=== PATIENT | male | born 1965 | race Caucasian/White ===

== ENCOUNTER 2019-03-07 18:56 | Inpatient (IN) | payer BC ==
--- NOTE | 2019-03-07 19:10 | PDOC ---
Rapid Medical Evaluation Time Seen by Provider: 03/07/19 19:07 Medical Evaluation: 03/07/19 19:07 Pt c/o: colonoscopy done 2 days ago, now with blood in stool x 2, no abd pain no distention, denies fever or hemorrhoid, had polyp clipped pt on brief exam: vss, no abd pain or distention Pt ordered for: cbc, sttol for occult blood Pt to proceed to the ED Discharge Disposition - Diagnosis Rectal bleeding, Post-polypectomy bleeding - Discharge Dispostion Disposition: HOME Condition at time of disposition: Improved - Referrals - Patient Instructions - Post Discharge Activity
--- NOTE | 2019-03-07 20:14 | PDOC ---
History of Present Illness - General Chief Complaint: Rectal Bleed Stated Complaint: BLOOD IN STOOL Time Seen by Provider: 03/07/19 19:07 History Source: Patient Exam Limitations: No Limitations - History of Present Illness Initial Comments: 03/07/19 19:45 Shiv Walter is a 53M with PMH CA s/p 2 stents presenting with BRBPR after a routine colonoscopy and polypectomy 6 days ago. Patient went in for a routine colonoscopy 6 days ago and had a polylp removed. Now having 2-3 days of BRBPR with bowel movements, more and more blood noted in well-formed stools, today has blood in water of toilet bowl. Called his GI doctor at [facility] (#[phone]) and was told to go to ER. Patient denies darker stools, abdominal pain, nausea, vomiting, chest pain, shortness of breath, weakness, urinary sx. Last had an EGD and colonoscopy 2 years ago, noted to have polyps at that time and noncancerous. Has not had any bloody stools prior to 2-3 days ago. Possibly history of hemorrhoids, says he occasional has red spotting but not to this extent. Procedures done because father of gastric cancer. Tolerating PO well, last oral intake earlier tonight, had spaghetti without issues. Had one mojito over the weekend without incident. Not straining with BM. NKDA No medications taken daily other than 81mg ASA, not on AC after CA No other PSH Denies tobacco/drug use, occasional alcohol use Past History - Past Medical History Allergies/Adverse Reactions: Allergies Allergy/AdvReac Type Severity Reaction Status Date / Time No Known Allergies Allergy Verified 03/07/19 19:07 COPD: No CHF: No - Immunization History Immunization Up to Date: Yes - Psycho Social/Smoking Cessation Hx Smoking History: Never smoked Have you smoked in the past 12 months: No Information on smoking cessation initiated: No Hx Alcohol Use: No Drug/Substance Use Hx: No Review of Systems - Review of Systems Able to Perform ROS?: Yes Constitutional: No: Symptoms Reported HEENTM: No: Symptoms Reported Respiratory: No: Symptoms reported Cardiac (ROS): No: Symptoms Reported ABD/GI: Yes: Blood Streaked Bowels. No: Constipated, Diarrhea, Nausea, Poor Appetite, Poor Fluid Intake, Vomiting : No: Symptoms Reported Musculoskeletal: No: Symptoms Reported Integumentary: No: Symptoms Reported Neurological: No: Symptoms reported Endocrine: No: Symptoms Reported Hematologic/Lymphatic: No: Symptoms Reported All Other Systems: Reviewed and Negative *Physical Exam - Vital Signs Last Vital Signs Temp Pulse Resp BP Pulse Ox 98.4 F 67 16 108/98 97 03/07/19 19:07 03/07/19 19:07 03/07/19 19:07 03/07/19 19:07 03/07/19 19:07 - Physical Exam General Appearance: Yes: Nourished, Appropriately Dressed. No: Apparent Distress HEENT: positive: EOMI, JENNYFER, Normal Voice, Symmetrical, Pharynx Normal, Hearing Grossly Normal. negative: Scleral Icterus (R), Scleral Icterus (L), Pharyngeal Erythema, Tonsillar Exudate, Tonsillar Erythema Neck: positive: Trachea midline, Supple. negative: Rigid, Lymphadenopathy (R), Lymphadenopathy (L) Respiratory/Chest: positive: Lungs Clear, Normal Breath Sounds. negative: Respiratory Distress, Accessory Muscle Use, Labored Respiration, Crackles, Rales , Rhonchi Cardiovascular: positive: Regular Rhythm, Regular Rate. negative: Edema, Murmur Gastrointestinal/Abdominal: positive: Normal Bowel Sounds, Flat, Soft. negative : Tender, Guarding, Rebound, Hernia, Mass Rectal Exam: positive: NL Prostate, normal rectal tone, heme positive stool, other (external exam shows now hemorrhoids or fissue, has some red blood at anal opening, tone good, no internal masses or tenderness, blood noted on glove with scant brown stool). negative: melena, decreased tone, hemorrhoids Musculoskeletal: positive: Normal Inspection. negative: CVA Tenderness Extremity: positive: Normal Capillary Refill, Normal Inspection, Normal Range of Motion. negative: Tender Integumentary: positive: Normal Color, Dry Neurologic: positive: Fully Oriented, Alert, Normal Mood/Affect, Normal Response ED Treatment Course - LABORATORY CBC & Chemistry Diagram: 03/07/19 20:00 03/07/19 20:00 Medical Decision Making - Medical Decision Making 03/07/19 19:45 Shiv Walter is a 53M with PMH CA s/p 2 stents presenting with BRBPR after a routine colonoscopy and polypectomy 6 days ago. Presentation concerning for rebleed after colocscopy and polypectomy. Patient does not know the name of the GI physician who performed the procedure and was referred here. Patient is HDS and has no other evidence of anemia, no SOB, no dizziness, no abdominal pain, not on AC. Blood still noted at anal opening on rectal exam concerning for continued bleed, will attempt to contact GI doctor. Ordered: CMP CBC type/screen coags hemoccult 03/07/19 20:27 Attempted to call [employer] [facility] four times, was connected to gritting machine operator who could not find patient in records based on and name, transferred to another facility which did not respond. Attempted to call physician who did colonoscopy three times at #[phone] which is phone number given by patient, no response, no message left as there is no indication that this is a medical facility. 03/07/19 20:[address] Wang with GI given inability to contact outside GI. Notes that patient is relatively stable at this time, but could open up at any time and would need emergent colonoscopy in that case. Recommends continuing to try to contact patient's GI, as well as continuing to monitor for worsening bleed, getting orthostatics, and if needs to be admitted will let GI service know in the morning for repeat colonoscopy. 03/07/19 21:01 Tried to call GI doctor again, went to voicemail but again no identification of who owns voicemail inbox. 03/07/19 21:34 Labs show no anemia, no elevated BUN concerning for UGIB, other labs WNL. Decision to admit patient given that the patient is having active bleeding per rectum and we are unable to contact his GI for a transfer and follow-up. Currently stable, no anemia or elevated BUN, but unclear whether the bleeding will increase or decrease if discharged home, risk of significant lower GI bleeding if an artery was damaged. 03/07/19 22:19 Signed out to mariano Almanzar to be admitted to Med-Surg under Dr. Adan for observation overnight and possible repeat colonoscopy in the morning. Dr. Wang already consulted. 03/07/19 23:21 ECG shows sinus bradycardia, HR 56, QTc 391, no evidence of ischemic changes or concerning findings Discharge - Discharge Information Problems reviewed: Yes Clinical Impression/Diagnosis: Rectal bleeding, Post-polypectomy bleeding Condition: Stable - Admission Yes - Follow up/Referral - Patient Discharge Instructions - Post Discharge Activity
[2019-03-07 20:17] LABS: BASO % 1.1 % (0-2.0); EOS % 2.5 % (0-4.5); HEMATOCRIT 41.3 % (35.4-49); LYMPH % 33.4 % (8-40); MCH 28.7 pg (25.7-33.7); MEAN CELL VOLUME 84.3 fl (80-96); MEAN PLT VOLUME 8.3 fl (7.5-11.1); MONO % 6.8 % (3.8-10.2); NEUT % 56.2 % (42.8-82.8); PLATELET COUNT 279 K/MM3 (134-434); RDW 14.6 % (11.9-15.9); WHITE BLOOD COUNT 8.3 K/mm3 (4.0-10.0)
--- NOTE | 2019-03-07 20:23 | PDOC ---
Documentation entered by Angie Villafuerte SCRIBE, acting as scribe for Paloma Roberts DO. Paloma Roberts, : This documentation has been prepared by the Noy freeman Xhesika, SCRIBE, under my direction and personally reviewed by me in its entirety. I confirm that the documentation accurately reflects all work, treatment, procedures, and medical decision making performed by me. Attending Attestation - Resident Resident Name: [email or web address] - ED Attending Attestation I have performed the following: I have examined & evaluated the patient, The case was reviewed & discussed with the resident, I agree w/resident's findings & plan, Exceptions are as noted - HPI HPI: 03/07/19 20:18 The patient is a 53 year old male with a significant PMH of MA s/p 2 stents who presents to the emergency department for 2 days of bright red per rectum, worsening today. Patient notes he had a colonoscopy and polypectomy 6 days ago and had polyps removed. Patient notes BRBPR with bowel movements, called his GI doctor at [facility] and was advised to go to the ER. Patient denies passing blood clots or dark stools. The patient denies chest pain, shortness of breath, headache and dizziness. Denies fever, chills, cough, nausea, vomiting, diarrhea and constipation. Denies dysuria, frequency, urgency and hematuria. Allergies: NKDA - Physicial Exam PE: 03/07/19 21:12 Gen: aaox3, nad heent: perrl, eomi, non pale conjunctiva heart: +s1s2 reg lungs: cta b/l abd: soft, nt/nd +bs ext: no c/c/e - Medical Decision Making 03/07/19 20:21 I, Dr. Paloma Roberts DO, attest that this document has been prepared under my direction and personally reviewed by me in its entirety. I further attest, that it accurately reflects all work, treatment, procedures and medical decision -making performed by me. a/p: 53yo male with recent colonoscopy last monday with rectal bleeding since Monday -had a polypectomy performed on monday -passing BRB with bm -pt denes abd pain -no lightheaded or dizziness -no cp/sob -no estrella -will send labs, will discuss with pts GI -will monitor and reassess 03/07/19 20:39 unable to contact GI specialists call placed to Dr. Wang to discuss the case 03/07/19 20:40 hgb 14 03/07/19 20:47 resident discussed the case with Dr. Wang 03/07/19 21:49 unable to get in contact with GI outpt - will admit here for repeat H/H and Dr. Felipe joyner in the morning 03/07/19 21:50 cxr clear 03/07/19 22:16 resident discussed the case with JINNY who accepts pt to service
[2019-03-07 20:29] LABS: INR 1.1 (0.83-1.09)
[2019-03-07 20:51] LABS: ALBUMIN 4.3 g/dl (3.4-5.0); BILIRUBIN,TOTAL 0.4 mg/dL (0.2-1); BLOOD UREA NITROGEN 18.5 mg/dL (7-18); CALCIUM 8.7 mg/dL (8.5-10.1); CREATININE 0.9 mg/dL (0.55-1.3); POTASSIUM 4.1 mmol/L (3.5-5.1); TOT PROT 7.1 g/dl (6.4-8.2)
--- NOTE | 2019-03-07 22:10 | PN ---
Teaching Attending Note Name of Resident: Debby Swanson ATTENDING PHYSICIAN STATEMENT I saw and evaluated the patient. I reviewed the resident's note and discussed the case with the resident. I agree with the resident's findings and plan as documented. SUBJECTIVE: Patient is a 53 year old man with a PMH of [place] s/p 2 stents who presents to the ER for 2 days of bright red per rectum, worsening today. Patient notes he had a colonoscopy and polypectomy 6 days ago and had polyps removed. Patient notes blood with bowel movements. Called his GI doctor at [facility] and was advised to go to the ER. Patient denies passing blood clots or dark stools. The patient denies chest pain, abdominal pain, shortness of breath, headache and dizziness. Denies fever, chills, cough, nausea, vomiting, diarrhea and constipation. Denies dysuria, frequency, urgency and hematuria. OBJECTIVE: Alert Vital Signs Period Temp Pulse Resp BP Sys/Huang Pulse Ox Last 24 Hr 98.4 F 67 16 108/98 97 HEENT: No Jaundice, eye redness or discharge, PERRLA, EOMI. Normocephalic, atraumatic. External ears are normal and hearing is grossly intact. No nasal discharge. Neck: Supple, nontender. No palpable adenopathy or thyromegaly. No JVD Chest: Good effort. Clear to auscultation and percussion. Heart: Regular. No S3, rub or murmur Abdomen: Not distended, soft, nontender and no HSM. No rebound or guarding. Normal bowel sounds. Ext: Peripheral pulses intact. No leg edema. Skin: Warm and dry. No petechiae, rash or ecchymosis. No hemorrhoids noted on rectal examination. Neuro: Alert. Oriented x3. CN 2-12 grossly intact. Sensation grossly intact in all four extremities and DTR are symmetric. Psych: Appropriate mood and affect. Good insight. Abnormal Lab Results 03/07/19 03/07/19 20:00 20:00 INR 1.10 H Anion Gap 7 L BUN 18.5 H ASSESSMENT AND PLAN: 1. Rectal bleeding post colonoscopy - Hematocrit is stable and there is no external evidence of active bleeding. Will hold Aspirin and monitor HCT q 6 hours. Patient not on Plavix. GI consulted. EKG shows sinus bradycardia with no changes of ischemia. Will continue comprehensive care for all of patients comorbid conditions. 2. Obesity Counseled on the risks associated with obesity. Will provide patient all the necessary assistance, counseling and positive reinforcement to facilitate weight loss. Consult spanish interpreter. 3. DVT prophylaxis - SCD 4. Advance directives - Full code
[2019-03-08] MEDS: SODIUM CHLORIDE 1,000 ML IV SCH ×2 (00:40→09:48)
[2019-03-08 02:09] VITALS: BMI 25.1
--- NOTE | 2019-03-08 03:54 | HP ---
CHIEF COMPLAINT: BRBPR PCP: [facility] HISTORY OF PRESENT ILLNESS: 53 y.o. M PMH MA s/p 2x stent placements presenting w/ BRBPR x 2 days. Patient had an outpatient colonoscopy performed @ [facility] (pt forgets name of GI, unable to get in touch overnight). He has been noticing a large amount of blood in the toilet bowl when having a bowel movement x 2 days which prompted him to call his GI office who told him to come into the ED. Patient is asymptomatic, has no MEREDITH/ CP/ SOB/abdominal pain/ dizziness/ lightheadedness/ dyschezia/ weakness. ER course was notable for: (1) Dr. Wang consulted since unable to contact pt's GI (2) Hgb/ Hct stable (3) Recent Travel: denies PAST MEDICAL HISTORY: as per HPI PAST SURGICAL HISTORY: Denies Social History: Smoking:denies Alcohol: denies Drugs: denies Allergies No Known Allergies Allergy (Verified 03/07/19 19:07) HOME MEDICATIONS: Home Medications Medication Instructions Recorded Aspirin 81 mg PO DAILY 03/08/19 PHYSICAL EXAMINATION Vital Signs - 24 hr 03/07/19 03/07/19 03/08/19 19:07 22:30 00:50 Temperature 98.4 F Pulse Rate 67 Pulse Rate [ 60 Left Radial] Pulse Rate [ 70 Left side Standing] Pulse Rate [ 68 Left side Supine] Respiratory 16 16 Rate Blood Pressure 108/98 Blood Pressure 127/71 [Left Arm] Blood Pressure 128/78 [Left side Standing] Blood Pressure 131/76 [Left side Supine] O2 Sat by Pulse 97 98 Oximetry (%) 03/08/19 03/08/19 02:03 02:13 Temperature 98.5 F Pulse Rate 89 Pulse Rate [ Left Radial] Pulse Rate [ Left side Standing] Pulse Rate [ Left side Supine] Respiratory 20 20 Rate Blood Pressure 116/72 Blood Pressure [Left Arm] Blood Pressure [Left side Standing] Blood Pressure [Left side Supine] O2 Sat by Pulse 98 Oximetry (%) GENERAL: AOx3 NAD HEENT: NCAT. PERRLA. LUNGS: CTABL. No incr work of breathing. HEART: RRR. No murmurs noted. ABDOMEN: Soft, nontender, not distended, normoactive bowel sounds, no guarding, no rebound. No organomegaly. RECTAL: No external hemorrhoids/ lesions noted. No masses. + bridgett blood on digital exam. EXTR: 2+ pulses palpated b/l UE & LE. No edema Laboratory Results - last 24 hr 03/07/19 03/07/19 03/07/19 20:00 20:00 20:00 WBC 8.3 RBC 4.90 Hgb 14.0 Hct 41.3 MCV 84.3 MCH 28.7 MCHC 34.0 RDW 14.6 Plt Count 279 MPV 8.3 Absolute Neuts (auto) 4.7 Neutrophils % 56.2 Lymphocytes % 33.4 Monocytes % 6.8 Eosinophils % 2.5 Basophils % 1.1 Nucleated RBC % 0 PT with INR 13.00 INR 1.10 H PTT (Actin FS) 33.1 Sodium Potassium Chloride Carbon Dioxide Anion Gap BUN Creatinine Est GFR (CKD-EPI)AfAm Est GFR (CKD-EPI)NonAf Random Glucose Calcium Total Bilirubin AST ALT Alkaline Phosphatase Total Protein Albumin Stool Occult Blood Blood Type Antibody Screen 03/07/19 03/07/19 03/07/19 20:00 20:00 20:00 WBC RBC Hgb Hct MCV MCH MCHC RDW Plt Count MPV Absolute Neuts (auto) Neutrophils % Lymphocytes % Monocytes % Eosinophils % Basophils % Nucleated RBC % PT with INR INR PTT (Actin FS) Sodium 141 Potassium 4.1 Chloride 105 Carbon Dioxide 29 Anion Gap 7 L BUN 18.5 H Creatinine 0.9 Est GFR (CKD-EPI)AfAm 114.21 Est GFR (CKD-EPI)NonAf 98.54 Random Glucose 92 Calcium 8.7 Total Bilirubin 0.4 AST 15 ALT 26 Alkaline Phosphatase 70 Total Protein 7.1 Albumin 4.3 Stool Occult Blood Positive Blood Type O POSITIVE Antibody Screen Negative 03/07/19 22:55 WBC RBC Hgb Hct MCV MCH MCHC RDW Plt Count MPV Absolute Neuts (auto) Neutrophils % Lymphocytes % Monocytes % Eosinophils % Basophils % Nucleated RBC % PT with INR INR PTT (Actin FS) Sodium Potassium Chloride Carbon Dioxide Anion Gap BUN Creatinine Est GFR (CKD-EPI)AfAm Est GFR (CKD-EPI)NonAf Random Glucose Calcium Total Bilirubin AST ALT Alkaline Phosphatase Total Protein Albumin Stool Occult Blood Positive Blood Type Antibody Screen ASSESSMENT/PLAN: 53 y.o. M PMH MA s/p 2x stent placements presenting w/ BRBPR. #Lower GI bleeding -Hgb/ hct 14/41.3- stable -F/u repeat CBC; hgb/hct q6h -Hold ASA -Dr. Wang (GI) consulted #MA history -EKG: sinus margot; no ischemic changes -holding asa in setting of gi bleed #FEN -NS @ 75mL/hr -Lytes WNL -NPO #DVT PPX -Holding AC in setting of GI bleed -SCDs #Dispo med surg Visit type - Emergency Visit Emergency Visit: Yes ED Registration Date: 03/07/19 Care time: The patient presented to the Emergency Department on the above date and was hospitalized for further evaluation of their emergent condition. - New Patient This patient is new to me today: Yes Date on this admission: 03/08/19 - Critical Care Critical Care patient: No ATTENDING PHYSICIAN STATEMENT I saw and evaluated the patient. I reviewed the resident's note and discussed the case with the resident. I agree with the resident's findings and plan as documented. SUBJECTIVE: OBJECTIVE: ASSESSMENT AND PLAN:
--- NOTE | 2019-03-08 09:07 | CON.GI ---
Consult Consult Specialty:: GI Referred by:: Hospitalist Reason for Consultation:: Rectal bleeding - History of Present Illness Chief Complaint: Rectal bleeding History of Present Illness: 53M admitted through [facility] ER for evaluation of rectal bleeding. He underwent colonoscopy performed by Dr. Li [phone] in [facility]. I spoke with Dr. Li. He found a previously tattooed site in the ascending colon with subcentimeter polypoid tissue that underwent hot snare polypectomy. Mr. Walter explains that starting monday he noticed passage of blood when he had a bowel movement. The blood was bright red and he did not notice clots. It became heavier yesterday which is why he came to the ER. In ER initial Hgb was 14. with P: 67 BP: 108/98. He is maintained on ASA 81mg once daily. he denies other NSAID use. He denies associated abdominal pain, lightheadedness, dizziness , chest pain, shortness of breath. There has been no bleeding since admission. There is no family history of colorectal cancer. His father may have had stomach cancer. 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 Mother: Alive: Stomach Ca. 3 sisters: healthy. 3 brothers: healthy. 1 daughter: heatlhy Review of Systems - Review of Systems Constitutional: denies: Fever, Unintentional Wgt. Loss Cardiovascular: denies: Chest Pain Respiratory: denies: SOB Gastrointestinal: reports: Rectal Bleeding. denies: Abdominal Pain, Constipation, Diarrhea, Melena, Nausea, Vomiting Genitourinary: reports: Dysuria (chronic) Physical Exam-GI Vital Signs: Vital Signs Temperature 98.5 F 03/08/19 02:03 Pulse Rate 89 03/08/19 02:03 Respiratory Rate 20 03/08/19 02:13 Blood Pressure 116/72 03/08/19 02:03 O2 Sat by Pulse Oximetry (%) 98 03/08/19 02:13 Constitutional: Yes: Calm Eyes: No: Sclera Icterus Cardiovascular: Yes: Regular Rate and Rhythm. No: Murmur Respiratory: Yes: CTA Bilaterally Gastrointestinal Inspection: No: Distention ...Auscultate: Yes: Normoactive Bowel Sounds ...Palpate: Yes: Soft. No: Hepatomegaly, Splenomegaly, Tenderness ...Percussion: No: Tympanitic ...Rectal Exam: Yes: Other (No external lesions, no masses, no blood, 2+ prostate) Edema: No (No LE edema) Labs: CBC, BMP 03/07/19 20:00 03/07/19 20:00 INR, PTT INR 1.10 (0.83-1.09) H 03/07/19 20:00 Hepatic Panel Total Bilirubin 0.4 mg/dL (0.2-1) 03/07/19 20:00 AST 15 U/L (15-37) 03/07/19 20:00 ALT 26 U/L (13-61) 03/07/19 20:00 Alkaline Phosphatase 70 U/L (45-117) 03/07/19 20:00 Albumin 4.3 g/dl (3.4-5.0) 03/07/19 20:00 Problem List - Problems (1) Rectal bleeding Assessment/Plan: Clinically stable without continued overt bleeding. Question of resolved post polypectomy bleed, however, his clotless bright red bleeding occurring only with bowel movements (with polypectomy site having had been in ascending colon) could be suggestive of internal hemorrhoidal bleeding as well. Advise: Monitoring of H/H Clear liquids If continued bleeding, will need colonoscopy to reassess polypectomy site, otherwise, would d/c home tomorrow to arrange follow-up with his pediatric occupational therapist next week. Code(s): K62.5 - HEMORRHAGE OF ANUS AND RECTUM
[2019-03-08 09:45] LABS: HEMATOCRIT 33.6 % (35.4-49); HEMOGLOBIN 11.7 GM/dL (11.7-16.9); MCH 29.1 pg (25.7-33.7); MCHC 34.8 g/dl (32.0-35.9); MEAN CELL VOLUME 83.7 fl (80-96); MEAN PLT VOLUME 8.3 fl (7.5-11.1); PLATELET COUNT 237 K/MM3 (134-434); RBC 4.02 M/mm3 (4.00-5.60); RDW 14.3 % (11.9-15.9); WHITE BLOOD COUNT 6.7 K/mm3 (4.0-10.0)
--- NOTE | 2019-03-08 09:47 | PN ---
<Moiz Angeles - Last Filed: 03/08/19 10:11> Physical Exam: SUBJECTIVE: No additional bloody bowel movements. Pt denies and headaches, lightheadedness, dizziness, shortness of breath, chest pain, palpitations. No events overnight OBJECTIVE: Vital Signs Period Temp Pulse Resp BP Sys/Huang Pulse Ox Last 24 Hr 98.4 F-98.5 F 60-89 16-20 108-131/71-98 97-98 GENERAL: NAD, awake, alert, and fully oriented HEENT: NC/AT, JOSÉ LUIS, no conjunctival pallor, sclera anicteric, MMM NECK: No JVD LUNGS: CTA bilaterally, no wheezes, no crackles, no accessory muscle use. HEART: RRR, S1, S2 without murmur ABDOMEN: Soft, nontender, nondistended, tympanitic, normoactive bowel sounds, no guarding, no hepatomegaly via percussion RECTAL: No hemorrhoids, no fissures, no masses appreciated, brown stool EXTREMITIES: 2+ DP pulses, warm, well-perfused, no edema, no calf tenderness PSYCH: Normal mood, normal affect. SKIN: Warm, dry, no rashes Laboratory Results 03/07/19 03/07/19 03/07/19 20:00 20:00 20:00 WBC 8.3 RBC 4.90 Hgb 14.0 Hct 41.3 MCV 84.3 MCH 28.7 MCHC 34.0 RDW 14.6 Plt Count 279 MPV 8.3 Absolute Neuts (auto) 4.7 Neutrophils % 56.2 Lymphocytes % 33.4 Monocytes % 6.8 Eosinophils % 2.5 Basophils % 1.1 Nucleated RBC % 0 PT with INR 13.00 INR 1.10 H PTT (Actin FS) 33.1 Sodium Potassium Chloride Carbon Dioxide Anion Gap BUN Creatinine Est GFR (CKD-EPI)AfAm Est GFR (CKD-EPI)NonAf Random Glucose Calcium Total Bilirubin AST ALT Alkaline Phosphatase Total Protein Albumin Stool Occult Blood Blood Type Antibody Screen 03/07/19 03/07/19 03/07/19 20:00 20:00 20:00 WBC RBC Hgb Hct MCV MCH MCHC RDW Plt Count MPV Absolute Neuts (auto) Neutrophils % Lymphocytes % Monocytes % Eosinophils % Basophils % Nucleated RBC % PT with INR INR PTT (Actin FS) Sodium 141 Potassium 4.1 Chloride 105 Carbon Dioxide 29 Anion Gap 7 L BUN 18.5 H Creatinine 0.9 Est GFR (CKD-EPI)AfAm 114.21 Est GFR (CKD-EPI)NonAf 98.54 Random Glucose 92 Calcium 8.7 Total Bilirubin 0.4 AST 15 ALT 26 Alkaline Phosphatase 70 Total Protein 7.1 Albumin 4.3 Stool Occult Blood Positive Blood Type O POSITIVE Antibody Screen Negative 03/07/19 22:55 WBC RBC Hgb Hct MCV MCH MCHC RDW Plt Count MPV Absolute Neuts (auto) Neutrophils % Lymphocytes % Monocytes % Eosinophils % Basophils % Nucleated RBC % PT with INR INR PTT (Actin FS) Sodium Potassium Chloride Carbon Dioxide Anion Gap BUN Creatinine Est GFR (CKD-EPI)AfAm Est GFR (CKD-EPI)NonAf Random Glucose Calcium Total Bilirubin AST ALT Alkaline Phosphatase Total Protein Albumin Stool Occult Blood Positive Blood Type Antibody Screen Active Medications Generic Name Dose Route Start Last Admin Trade Name Freq PRN Reason Stop Dose Admin Sodium Chloride 1,000 mls @ 75 mls/hr 03/07/19 23:45 03/08/19 00:40 Normal Saline - IV 75 mls/hr ASDIR PIPE Administration Pantoprazole Sodium 40 mg 03/08/19 10:00 Protonix Iv IVPUSH BID PIPE ASSESSMENT/PLAN: Rectal bleeding CAD s/p PCI --H/H remains stable; hemodynamically stable, aSx --CBC q6h; next to follow-up --Discussed with GI: --Pt has hotsnare polypectomy of ascending colon polyp 1 week prior --Site had previous polyp tattoo noted during polypectomy --If pt remains stable without any overt bleeding until tomorrow can discharge home with interval followup --Discontinue fluids due to advancing to clear liquids --Protonix 40mg on board --ASA on hold for now due to bleed FEN: Fluilds: D/C Electrolyte abnormalities: Awaiting labs AM Nutrition: Advance to clears per GI PPX: DVT - Early ambulation GI - Protonix on board Dispo: Likely D/c tomorrow pending stability Case discussed with Dr. Bledsoe and Dr. Ammy Angeles, DO - IM PGY-3 Visit type - Emergency Visit Emergency Visit: Yes ED Registration Date: 03/07/19 Care time: The patient presented to the Emergency Department on the above date and was hospitalized for further evaluation of their emergent condition. - New Patient This patient is new to me today: Yes Date on this admission: 03/08/19 - Critical Care Critical Care patient: No <Torey Bledsoe - Last Filed: 03/09/19 09:44> Physical Exam: SUBJECTIVE: Patient seen and examined OBJECTIVE: Vital Signs Period Temp Pulse Resp BP Sys/Huang Pulse Ox Last 24 Hr 97.9 F-98.4 F 51-64 18-20 112-137/68-86 GENERAL: The patient is awake, alert, and fully oriented, in no acute distress. HEAD: Normal with no signs of trauma. EYES: PERRL, extraocular movements intact, sclera anicteric, conjunctiva clear. No ptosis. ENT: Ears normal, nares patent, oropharynx clear without exudates, moist mucous membranes. NECK: Trachea midline, full range of motion, supple. LUNGS: Breath sounds equal, clear to auscultation bilaterally, no wheezes, no crackles, no accessory muscle use. HEART: Regular rate and rhythm, S1, S2 without murmur, rub or gallop. ABDOMEN: Soft, nontender, nondistended, normoactive bowel sounds, no guarding, no rebound, no hepatosplenomegaly, no masses. EXTREMITIES: 2+ pulses, warm, well-perfused, no edema. NEUROLOGICAL: Cranial nerves II through XII grossly intact. Normal speech, gait not observed. PSYCH: Normal mood, normal affect. SKIN: Warm, dry, normal turgor, no rashes or lesions noted Laboratory Results - last 24 hr 03/08/19 03/08/19 03/08/19 09:20 09:20 15:15 WBC 6.7 5.9 RBC 4.02 4.02 Hgb 11.7 11.6 L Hct 33.6 L D 34.1 L MCV 83.7 84.7 MCH 29.1 28.8 MCHC 34.8 34.0 RDW 14.3 15.0 Plt Count 237 238 MPV 8.3 8.3 Sodium 141 Potassium 4.3 Chloride 108 H Carbon Dioxide 28 Anion Gap 5 L BUN 13.3 Creatinine 0.8 Est GFR (CKD-EPI)AfAm 119.88 Est GFR (CKD-EPI)NonAf 103.43 Random Glucose 92 Calcium 8.0 L Phosphorus 2.9 Magnesium 2.4 03/08/19 21:00 WBC 6.0 RBC 4.14 Hgb 11.7 Hct 35.1 L MCV 84.7 MCH 28.3 MCHC 33.4 RDW 14.7 Plt Count 243 MPV 8.2 Sodium Potassium Chloride Carbon Dioxide Anion Gap BUN Creatinine Est GFR (CKD-EPI)AfAm Est GFR (CKD-EPI)NonAf Random Glucose Calcium Phosphorus Magnesium Active Medications Generic Name Dose Route Start Last Admin Trade Name Freq PRN Reason Stop Dose Admin Pantoprazole Sodium 40 mg 03/08/19 10:00 03/09/19 09:26 Protonix Iv IVPUSH 40 mg BID PIPE Administration ASSESSMENT/PLAN: ATTENDING PHYSICIAN STATEMENT I saw and evaluated the patient. I reviewed the resident's note and discussed the case with the resident. I agree with the resident's findings and plan as documented. SUBJECTIVE: OBJECTIVE: ASSESSMENT AND PLAN:
[2019-03-08] MEDS: PANTOPRAZOLE SODIUM 40 MG VIAL IVPUSH SCH ×2 (09:49→21:55)
[2019-03-08 10:09] LABS: BLOOD UREA NITROGEN 13.3 mg/dL (7-18); CREATININE 0.8 mg/dL (0.55-1.3); MAGNESIUM 2.4 mg/dL (1.8-2.4); PHOSPHOROUS 2.9 mg/dL (2.5-4.9); POTASSIUM 4.3 mmol/L (3.5-5.1)
--- NOTE | 2019-03-08 14:28 | EKG ---
Test Reason : Blood Pressure : / mmHG Vent. Rate : 056 BPM Atrial Rate : 056 BPM P-R Int : 162 ms QRS Dur : 082 ms QT Int : 406 ms P-R-T Axes : 070 085 033 degrees QTc Int : 391 ms SINUS BRADYCARDIA OTHERWISE NORMAL ECG NO PREVIOUS ECGS AVAILABLE Confirmed by LOAN BANGURA MD ([id number]) on 03/08/2019 2:27:57 PM Referred By: Confirmed By:LOAN BANGURA MD
[2019-03-08 15:52] LABS: HEMATOCRIT 34.1 % (35.4-49); HEMOGLOBIN 11.6 GM/dL (11.7-16.9); MCH 28.8 pg (25.7-33.7); MEAN CELL VOLUME 84.7 fl (80-96); MEAN PLT VOLUME 8.3 fl (7.5-11.1); PLATELET COUNT 238 K/MM3 (134-434); RBC 4.02 M/mm3 (4.00-5.60); WHITE BLOOD COUNT 5.9 K/mm3 (4.0-10.0)
[2019-03-08 21:55] LABS: HEMATOCRIT 35.1 % (35.4-49); HEMOGLOBIN 11.7 GM/dL (11.7-16.9); MCH 28.3 pg (25.7-33.7); MCHC 33.4 g/dl (32.0-35.9); MEAN CELL VOLUME 84.7 fl (80-96); MEAN PLT VOLUME 8.2 fl (7.5-11.1); PLATELET COUNT 243 K/MM3 (134-434); RBC 4.14 M/mm3 (4.00-5.60); RDW 14.7 % (11.9-15.9)
[2019-03-09 05:14] VITALS: TEMP 97.9
[2019-03-09] MEDS: PANTOPRAZOLE SODIUM 40 MG VIAL IVPUSH SCH (09:26)
--- NOTE | 2019-03-09 09:28 | PN.GI ---
GI Progress Note Subjective: No BM No rectal bleeding States feeling well H/H stable from yesterday morning to last night - Objective Vital Signs: Vital Signs Temperature 97.9 F 03/09/19 05:12 Pulse Rate 54 L 03/09/19 05:12 Respiratory Rate 20 03/09/19 05:12 Blood Pressure 112/68 03/09/19 05:12 O2 Sat by Pulse Oximetry (%) 98 03/08/19 09:00 Constitutional: Calm Eyes: No: Sclera Icterus Cardiovascular: Yes: Bradycardia Respiratory: Yes: CTA Bilaterally Gastrointestinal Inspection: No: Scars ...Auscultate: Yes: Normoactive Bowel Sounds ...Palpate: Yes: Soft. No: Hepatomegaly, Splenomegaly, Tenderness Edema: No (No LE edema) Labs: CBC, BMP 03/08/19 21:00 03/08/19 09:20 INR, PTT INR 1.10 (0.83-1.09) H 03/07/19 20:00 Problem List - Problems (1) Rectal bleeding Assessment/Plan: No continued bleeding reported Awaiting H/H If H/H stable, no continued bleeding, advance diet and OK for D/C home. 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 Patient does not recall being on beta tawny or being told of slow heart rate in past. Advised that he discuss with his PMD when acute issues are resolved Problems reviewed: Yes Code(s): R00.1 - BRADYCARDIA, UNSPECIFIED
[2019-03-09 09:50] LABS: HEMATOCRIT 33.7 % (35.4-49); HEMOGLOBIN 11.5 GM/dL (11.7-16.9); MCH 28.8 pg (25.7-33.7); MCHC 34.1 g/dl (32.0-35.9); MEAN CELL VOLUME 84.5 fl (80-96); MEAN PLT VOLUME 8.1 fl (7.5-11.1); PLATELET COUNT 238 K/MM3 (134-434); RBC 3.99 M/mm3 (4.00-5.60); RDW 15.1 % (11.9-15.9); WHITE BLOOD COUNT 6.8 K/mm3 (4.0-10.0)
[2019-03-09 10:14] LABS: BLOOD UREA NITROGEN 10.2 mg/dL (7-18); POTASSIUM 3.8 mmol/L (3.5-5.1)
--- NOTE | 2019-03-09 12:03 | DS ---
Physical Exam: SUBJECTIVE: Patient seen and examined OBJECTIVE: Vital Signs Period Temp Pulse Resp BP Sys/Huang Pulse Ox Last 24 Hr 97.9 F-98.4 F 54-64 18-20 112-137/68-86 PHYSICAL EXAM GENERAL: The patient is awake, alert, and fully oriented, in no acute distress. HEAD: Normal with no signs of trauma. EYES: PERRL, extraocular movements intact, sclera anicteric, conjunctiva clear. ENT: Ears normal, nares patent, oropharynx clear without exudates, moist mucous membranes. NECK: Trachea midline, full range of motion, supple. LUNGS: Breath sounds equal, clear to auscultation bilaterally, no wheezes, no crackles, no accessory muscle use. HEART: Regular rate and rhythm, S1, S2 without murmur, rub or gallop. ABDOMEN: Soft, nontender, nondistended, normoactive bowel sounds, no guarding, no rebound, no hepatosplenomegaly, no masses. EXTREMITIES: 2+ pulses, warm, well-perfused, no edema. NEUROLOGICAL: Cranial nerves II through XII grossly intact. Normal speech, gait not observed. PSYCH: Normal mood, normal affect. SKIN: Warm, dry, normal turgor, no rashes or lesions noted. LABS Laboratory Results - last 24 hr 03/08/19 03/08/19 03/09/19 15:15 21:00 09:35 WBC 5.9 6.0 6.8 RBC 4.02 4.14 3.99 L Hgb 11.6 L 11.7 11.5 L Hct 34.1 L 35.1 L 33.7 L MCV 84.7 84.7 84.5 MCH 28.8 28.3 28.8 MCHC 34.0 33.4 34.1 RDW 15.0 14.7 15.1 Plt Count 238 243 238 MPV 8.3 8.2 8.1 Sodium Potassium Chloride Carbon Dioxide Anion Gap BUN Creatinine Est GFR (CKD-EPI)AfAm Est GFR (CKD-EPI)NonAf Random Glucose Calcium 03/09/19 09:35 WBC RBC Hgb Hct MCV MCH MCHC RDW Plt Count MPV Sodium 141 Potassium 3.8 Chloride 108 H Carbon Dioxide 26 Anion Gap 7 L BUN 10.2 Creatinine 1.0 Est GFR (CKD-EPI)AfAm 100.55 Est GFR (CKD-EPI)NonAf 86.76 Random Glucose 112 H Calcium 8.0 L HOSPITAL COURSE: Date of Admission:03/07/19 Date of Discharge: 03/09/19 <RakanTorey - Last Filed: 03/09/19 12:05> Physical Exam: SUBJECTIVE: No acute events. No more bloody BM. Pt has no complaints today OBJECTIVE: Vital Signs Period Temp Pulse Resp BP Sys/Huang Pulse Ox Last 24 Hr 97.9 F-98.4 F 54-64 18-20 112-137/68-86 PHYSICAL EXAM GENERAL: NAD, awake, alert, and fully oriented HEENT: NC/AT, JOSÉ LUIS, no conjunctival pallor, sclera anicteric, MMM NECK: No JVD LUNGS: CTA bilaterally, no wheezes, no crackles, no accessory muscle use. HEART: RRR, S1, S2 without murmur ABDOMEN: Soft, nontender, nondistended, tympanitic, normoactive bowel sounds, no guarding, no hepatomegaly via percussion EXTREMITIES: 2+ DP pulses, warm, well-perfused, no edema, no calf tenderness PSYCH: Normal mood, normal affect. SKIN: Warm, dry, no rashes LABS Laboratory Results - last 24 hr 03/08/19 03/08/19 03/09/19 15:15 21:00 09:35 WBC 5.9 6.0 6.8 RBC 4.02 4.14 3.99 L Hgb 11.6 L 11.7 11.5 L Hct 34.1 L 35.1 L 33.7 L MCV 84.7 84.7 84.5 MCH 28.8 28.3 28.8 MCHC 34.0 33.4 34.1 RDW 15.0 14.7 15.1 Plt Count 238 243 238 MPV 8.3 8.2 8.1 Sodium Potassium Chloride Carbon Dioxide Anion Gap BUN Creatinine Est GFR (CKD-EPI)AfAm Est GFR (CKD-EPI)NonAf Random Glucose Calcium 03/09/19 09:35 WBC RBC Hgb Hct MCV MCH MCHC RDW Plt Count MPV Sodium 141 Potassium 3.8 Chloride 108 H Carbon Dioxide 26 Anion Gap 7 L BUN 10.2 Creatinine 1.0 Est GFR (CKD-EPI)AfAm 100.55 Est GFR (CKD-EPI)NonAf 86.76 Random Glucose 112 H Calcium 8.0 L IMAGING: CXR: Impression: No acute chest pathology. No comparison studies. ECG: QTc Int : 391 ms SINUS BRADYCARDIA OTHERWISE NORMAL ECG NO PREVIOUS ECGS AVAILABLE HOSPITAL COURSE: Date of Admission:03/07/19 Date of Discharge: 03/09/19 Pt was admitted on 03/07/19 due to BRBPR with suspicion of post-polypectomy lower GI bleed. Pt's initial Hgb remained at 14.0. His CBC was trended q6h which remained stable (~11.4) throughout. Pt did not have any bleeding and his ASA was held while he was in the hospital. Pt did not have any symptoms throughout his stay here and was evaluated by gastroenterology here. Pt is being discharged in stable condition with instructions to hold his ASA for only 2 more days and to restart. If he is to have any other bleeding he is instructed to come back to the ER or call his GI physicians. Pt is to follow-up with his PCP regarding his sinus bradycardia. Minutes to complete discharge: 35 <Moiz Angeles - Last Filed: 03/09/19 14:20> Discharge Summary Current Active Problems Bradycardia (Acute) Post-polypectomy bleeding (Acute) Rectal bleeding (Acute) <Torey Bledsoe - Last Filed: 03/09/19 12:05> Problems reviewed: Yes Reason For Visit: POST POLYPECTOMY BLEEDING Current Active Problems Bradycardia (Acute) Post-polypectomy bleeding (Acute) Rectal bleeding (Acute) <Moiz Angeles - Last Filed: 03/09/19 14:20> Condition: Improved - Instructions Diet, Activity, Other Instructions: You were seen due to your bleeding. Your blood counts stayed stable and you did not have any more bleeding. You were seen by a GI who agrees that you can go home today and follow-up with Herbie RICHARDS at [facility]. Medications: We suggest holding your Aspirin for another 2 days and then restart it 81mg qdaily. If you notice bleeding again please call your doctor or go to the ER FOLLOW-UP: Please follow-up with your primary care provider. If you do not have one please see Dr. Alcaraz at the clinic here so you can be helped. Please follow-up with your GI doctor at [facility] to let them know about the bleeding. IF you cannot get into their offices, Dr. Gimenez's office has been attached to this packet so you can try to be seen there as he saw you in the hospital. Referrals: Dr. Jen [Other] Leno Alcaraz MD [Staff Physician] - Ankur Gimenez DO [Staff Physician] - Disposition: HOME This patient is new to me today: No Emergency Visit: Yes ED Registration Date: 03/07/19 Care time: The patient presented to the Emergency Department on the above date and was hospitalized for further evaluation of their emergent condition. Critical Care patient: No - Discharge Referral Referred to [facility] No <Moiz Angeles - Last Filed: 03/09/19 14:20> ATTENDING PHYSICIAN STATEMENT I saw and evaluated the patient. I reviewed the resident's note and discussed the case with the resident. I agree with the resident's findings and plan as documented. SUBJECTIVE: OBJECTIVE: ASSESSMENT AND PLAN: <Torey Bledsoe - Last Filed: 03/09/19 12:05> ATTENDING PHYSICIAN STATEMENT I saw and evaluated the patient. I reviewed the resident's note and discussed the case with the resident. I agree with the resident's findings and plan as documented. SUBJECTIVE: OBJECTIVE: ASSESSMENT AND PLAN: <Moiz Angeles - Last Filed: 03/09/19 14:20>
[2019-03-09 12:18] VITALS: BP 122/73; PULSE 52
== END 2019-03-09 13:50 | disposition home or self-care (01) | DRG 920 ==
LOC: JER 18:56 → JERBED 21:29 → J6S 03-08 01:34
PROVIDERS: ADMIT Internal Medicine; ATTEND Internal Medicine
DX: K91.840 Postprocedural hemorrhage of a digestive system organ or structure following a digestive system procedure (principal); K62.5 Hemorrhage of anus and rectum; Y83.9 Surgical procedure, unspecified as the cause of abnormal reaction of the patient, or of later complication, without mention of misadventure at the time of the procedure; R00.1 Bradycardia, unspecified; I25.10 Atherosclerotic heart disease of native coronary artery without angina pectoris; Z98.61 Coronary angioplasty status; E66.9 Obesity, unspecified; Z68.23 Body mass index [BMI] 23.0-23.9, adult
CPT/HCPCS: 36415; 71045-TC-FY; 80048; 80053; 82272; 83735; 84100; 85025; 85027; 85610; 85730; 86850; 86900; 86901; 93005; 93010; 99285-25; J7030

== ENCOUNTER 2024-06-03 04:48 | Day surgery (SDC) | payer BC ==
[2024-05-30 11:17] VITALS: BMI 22.9
[2024-06-03] MEDS ORDERED: MIDAZOLAM HCL 2 MG/2 ML SINGLE DOSE VIAL ONE (07:54)
[2024-06-03 09:56] VITALS: RESP 16; TEMP 97.7
[2024-06-03 15:00] VITALS: BP 102/56; PULSE 58
== END 2024-06-03 10:00 | disposition home or self-care (01) ==
LOC: JASU-ENDO 04:48
PROVIDERS: ATTEND Internal Medicine Gastroenterology
PROC: 0DBK8ZX Excision of Ascending Colon, Via Natural or Artificial Opening Endoscopic, Diagnostic (ICD-10-PCS; principal; 2024-06-03 08:00)
DX: Z12.11 Encounter for screening for malignant neoplasm of colon (principal); D12.2 Benign neoplasm of ascending colon; K64.8 Other hemorrhoids; K63.89 Other specified diseases of intestine
CPT/HCPCS: 88305-TC; 88342-TC